=== PATIENT | male | born 1965 | race Two or more races ===

== ENCOUNTER 2018-10-15 08:14 | Outpatient (CLI) | payer OTHER | END 2018-10-15 15:00 | disposition home or self-care (01) | LOC: LAB 08:14 | DX: N20.0 Calculus of kidney (principal) ==

== ENCOUNTER → 2018-10-15 | Outpatient (CLI) | payer OTHER ==
[~2018-10-15] MED LIST: LABETALOL HCL5 MG/M1; NORVASC2.5 M1
== END | disposition home or self-care (01) ==
LOC: TOM 07:15
DX: J30.89 Other allergic rhinitis (principal); Z77.090 Contact with and (suspected) exposure to asbestos; R06.09 Other forms of dyspnea; K57.10 Diverticulosis of small intestine without perforation or abscess without bleeding

== ENCOUNTER 2019-10-30 05:35 | Day surgery (SDC) | payer OTHER ==
[2019-10-30] MEDS ORDERED: NEXIUM 24HR20 M1 PO (08:33)
== END 2019-10-30 10:05 | disposition home or self-care (01) ==
LOC: AMB-ENDOS 05:35
PROVIDERS: ATTEND Surgery
DX: K29.50 Unspecified chronic gastritis without bleeding (principal); K44.9 Diaphragmatic hernia without obstruction or gangrene

== ENCOUNTER 2020-04-22 07:09 | Outpatient (CLI) | payer OTHER ==
[~2020-04-22 07:09] MED LIST changes: +NEXIUM 24HR20 M1 PO
== END 2020-04-22 07:22 | disposition home or self-care (01) ==
LOC: TOM 07:09
PROVIDERS: ATTEND Urology
DX: K59.09 Other constipation (principal); N20.0 Calculus of kidney; Q61.01 Congenital single renal cyst